=== PATIENT | female | born 1965 | race Caucasian/White ===

== ENCOUNTER 2017-07-04 20:20 | Emergency (ER) | payer BC, OTHER ==
[~2017-07-04 20:20] MED LIST: BACL10TA PO; FING1CAP PO; MECL25 PO; ONDA4TAB7 OR; RELP20TA PO; ZANA4CAP PO
[2017-07-04 20:25] VITALS: BP 146/74; PULSE 90; RESP 16; TEMP 98.1; O2SAT 98
[2017-07-04] MEDS ORDERED: TETANUS/DIPHTHERIA TOXOID ADULT 0.5 ML VIAL IM ONE (20:45)
[2017-07-04] MEDS ORDERED: DOXYCYCLINE HYCLATE 100 MG CAP PO ONE (20:45)
[2017-07-04] MEDS ORDERED: metroNIDAZOLE 500 MG TAB PO ONE (20:45)
[2017-07-04] MEDS ORDERED: LIDOCAINE HCL 2% 20 ML VIAL INFIL ONE (20:45)
[2017-07-04] MEDS ORDERED: IBUPROFEN 800 MG TAB PO ONE (20:45)
[2017-07-04] MEDS ORDERED: METR1TAB76 PO (21:30)
[2017-07-04] MEDS ORDERED: POVIDONE IODINE 10% OINT 30 GM TUBE TOPICAL ONE (21:30)
[2017-07-04] MEDS ORDERED: DOXY100C PO (21:30)
[2017-07-04] MEDS ORDERED: IBUP1TAB7 PO (21:30)
--- NOTE | 2017-07-04 21:30 | PD ---
HPI Chief Complaint: Bite or Sting Time Seen by Provider: 20:30 Travel History International Travel<30 days: No Contact w/Intl Traveler<30days: No Traveled to known affect area: No History of Present Illness HPI Patient is a 52-year-old female presenting to the emergency department for evaluation of lacerations to her right fingers after she sustained a dog bite. Patient states she was helping 1 of her rescue dogs get freed from a fence when she was bitten. The dog's vaccines are up-to-date. Patient's vaccines are not. She is uncertain when her last tetanus vaccine was administered. Patient reports her pain is a 7 out of 10, she reports that they are throbbing, pain is constant. She denies any numbness, tingling, loss of function. Patient has no other complaints at this time. Symptom onset was sudden, symptoms are moderate. PFSH Past Medical History Neurologic: Yes (MS) Menopausal: Yes Past Surgical History Hysterectomy: Yes Social History Alcohol Use: No Tobacco Use: No Substance Use: No Allergies-Medications (Allergen,Severity, Reaction): Coded Allergies: codeine (Verified Allergy, Severe, 07/04/17) morphine (Unverified Allergy, Severe, HIVES, 07/04/17) amoxicillin (Unverified Allergy, Unknown, 07/04/17) clavulanic acid (Unverified Allergy, Unknown, 07/04/17) diphtheria toxoid,fluid (Verified Allergy, Unknown, 07/04/17) latex (Unverified Allergy, Unknown, 07/04/17) Reported Meds & Prescriptions Reported Meds & Active Scripts Active Metronidazole 500 Mg Tab 500 Mg PO TID 10 Days Doxycycline Hyclate 100 Mg Cap 100 Mg PO BID Ibuprofen 800 Mg Tab 800 Mg PO Q6HR PRN Physical Exam Narrative GENERAL: Well-developed, well-nourished, alert female. Presenting in no acute distress. SKIN: Warm and dry. 3 cm laceration to the lateral aspect of the right first finger, 1 cm laceration to the interdigital space between the third and fourth finger on the right hand, 0.5 cm laceration to the medial aspect of the right first finger. Multiple small superficial abrasions to right hand. Base of wounds are well visualized. HEAD: Normocephalic. EYES: No scleral icterus. No injection or drainage. NECK: Supple, trachea midline. No JVD or lymphadenopathy. CARDIOVASCULAR: Regular rate and rhythm without murmurs, gallops, or rubs. RESPIRATORY: Breath sounds equal bilaterally. No accessory muscle use. GASTROINTESTINAL: Abdomen soft, non-tender, nondistended. MUSCULOSKELETAL: No cyanosis, or edema. 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 Brisk less than 3 second capillary refill. BACK: Nontender without obvious deformity. No CVA tenderness. Data Data Last Documented VS Vital Signs Date Time Temp Pulse Resp B/P (MAP) Pulse Ox O2 Delivery O2 Flow Rate FiO2 07/04/17 20:25 98.1 90 16 146/74 (98) 98 Orders Orders Ibuprofen (Motrin) (07/04/17 20:45) Tetanus/Diphtheria Tox Adult (Tetanus/Di (07/04/17 20:45) Lidocaine 2% Inj (Xylocaine 2% Inj) (07/04/17 20:45) Doxycycline (Vibramycin) (07/04/17 20:45) Metronidazole (Flagyl) (07/04/17 20:45) Povidone Iodine 10% Oint (Betadine 10% O (07/04/17 21:30) Splint Or Brace Apply/Monitor (07/04/17 21:31) Ed Discharge Order (07/04/17 21:44) [facility] Medical Decision Making Medical Screen Exam Complete: Yes Emergency Medical Condition: Yes Interpretation(s) Vital Signs Date Time Temp Pulse Resp B/P (MAP) Pulse Ox O2 Delivery O2 Flow Rate FiO2 07/04/17 20:25 98.1 90 16 146/74 (98) 98 Differential Diagnosis Puncture wound versus laceration versus abrasion versus less likely fracture versus retained foreign body versus other Narrative Course Patient is a 52-year-old female presenting for evaluation of a dog bite. Please see procedure report for laceration repairs. Patient is neurovascularly intact no focal deficits on exam. Patient is allergic to penicillins, she will be started on doxycycline and metronidazole. Her tetanus vaccine was not updated in the emergency department as patient is allergic to diphtheria and we do not have a vaccine without it. Patient was advised to follow-up with her primary doctor to obtain tetanus vaccine. Or follow-up at the health department to obtain the vaccine. Povidone iodine ointment will be applied to wounds prior to dressing. Finger splint will be applied to the right first finger. Patient was advised to keep stitches clean and dry, she was advised that they will need to be removed in 10 days. She was educated on the signs and symptoms of infection. Patient verbalized understanding of these instructions. She was advised to return to emergency department for any new or worsening symptoms. Patient stable for discharge. Procedures Procedure Narrative LACERATION LOCATION: Right second finger LENGTH: 3 cm NUMBER OF STITCHES/MARVIN: 7 stitches REPAIR: The area of the laceration was prepped with Betadine and sterilely draped. The laceration was infiltrated with 1% lidocaine. The wound was copiously irrigated and explored without evidence of foreign body, tendon injury or neurovascular injury. The wound was closed using 4-0 Ethilon and 6-0 Ethilon. This was a 1 layer repair. A sterile dressing was applied. The patient was advised to keep the dressing clean and dry. Patient tolerated the procedure well. LACERATION LOCATION: Third and fourth interdigital space on the right hand LENGTH: 1 cm NUMBER OF STITCHES/MARVIN: 2 stitches REPAIR: The area of the laceration was prepped with Betadine and sterilely draped. The laceration was infiltrated with 1% lidocaine. The wound was copiously irrigated and explored without evidence of foreign body, tendon injury or neurovascular injury. The wound was closed using 6-0 Ethilon. This was a 1 layer repair. A sterile dressing was applied. The patient was advised to keep the dressing clean and dry. Patient tolerated the procedure well. LACERATION LOCATION: Right second finger LENGTH: 1 cm NUMBER OF STITCHES/MARVIN: One stitch REPAIR: The area of the laceration was prepped with Betadine and sterilely draped. The laceration was infiltrated with 1% line the wound was copiously irrigated and explored without evidence of foreign body, tendon injury or neurovascular injury. The wound was closed using 6-0 Ethilon. This was a 1 layer repair. A sterile dressing was applied. The patient was advised to keep the dressing clean and dry. Patient tolerated the procedure well. Diagnosis Primary Impression: Dog bite Qualified Codes: W54.0XXA - Bitten by dog, initial encounter Additional Impressions: Laceration Puncture wound Referrals: Primary Care Physician 1 week Patient Instructions: Animal Bite (ED), Care For Your Stitches (ED), Finger Laceration (ED), General Instructions Additional Instructions: Keep stitches clean and dry, keep finger splint on for support to avoid rupturing sutures Return to emergency department for any new or worsening symptoms Stitches will need to be removed in 7 to 10 days you can return to emergency department follow-up with your primary doctor Take ibuprofen as needed and as directed for pain Complete full course of antibiotics as prescribed Med/Other Pt SpecificInfo: Prescription(s) given Scripts Metronidazole (Metronidazole) 500 Mg Tab 500 MG PO TID for Infection for 10 Days, TAB 0 Refills Prov: Yoselin Martin 07/04/17 Doxycycline Hyclate (Doxycycline Hyclate) 100 Mg Cap 100 MG PO BID for Infection, #20 CAP 0 Refills Prov: Yoselin Martin 07/04/17 Ibuprofen (Ibuprofen) 800 Mg Tab 800 MG PO Q6HR Y for PAIN, #40 TAB 0 Refills Prov: Yoselin Martin 07/04/17 Disposition: 01 DISCHARGE HOME Condition: Stable Yoselin Martin July 04, 2017 21:30
== END 2017-07-04 22:04 | disposition home or self-care (01) ==
LOC: NEPD 20:20
DX: S61.451A Open bite of right hand, initial encounter (principal); S61.250A Open bite of right index finger without damage to nail, initial encounter; W54.0XXA Bitten by dog, initial encounter
CPT/HCPCS: 12002